=== PATIENT | female | born 1965 | race Caucasian/White ===

== ENCOUNTER 2021-03-21 06:53 | Day surgery (SDC) | payer BC, OTHER ==
[2021-03-21] MEDS ORDERED: Propofol 200 MG/20 ML SDV IV ONE (06:54)
[2021-03-21] MEDS ORDERED: Midazolam 1 MG/ML 2 ML SDV IV ONE (06:54)
[2021-03-21] MEDS ORDERED: Sodium Chloride 0.9% 10 ML Syringe FLUSH PRN (07:15)
[2021-03-21] MEDS ORDERED: Lactated Ringers 1,000 ML IV SCH (07:15)
--- NOTE | 2021-03-21 08:53 | PCM.PN ---
- General Info Date of Service: 03/21/21 - Review of Systems General: Reports: No Symptoms Pulmonary: Reports: No Symptoms, Other (Has been dx with sleep apnea). Denies: Shortness of Breath Cardiovascular: Reports: No Symptoms Gastrointestinal: Reports: Other (Bowels working well; recently started on weight loss medication) - Patient Data Vitals - Most Recent: Last Vital Signs Temp 98.4 F 03/21/21 07:15 Pulse 83 03/21/21 07:15 Resp 16 03/21/21 07:15 BP 125/72 03/21/21 07:15 Pulse Ox 99 03/21/21 07:15 Weight - Most Recent: 222 lb 7.143 oz Med Orders - Current: Current Medications Lactated Ringer's (Ringers, Lactated) 1,000 mls @ 125 mls/hr IV ASDIRECTED KYRA Last Admin: 03/21/21 07:34 Dose: 125 mls/hr Documented by: Sodium Chloride (Sodium Chloride 0.9% 10 Ml Syringe) 10 ml FLUSH ASDIRECTED PRN PRN Reason: Keep Vein Open - Exam General: Alert, Oriented Lungs: Clear to Auscultation, Normal Respiratory Effort Cardiovascular: Regular Rate, Regular Rhythm GI/Abdominal Exam: Soft, Non-Tender Extremities: Normal Inspection Sepsis Event Note - Focused Exam Vital Signs: Vital Signs Temp Pulse Resp BP Pulse Ox 03/21/21 07:15 98.4 F 83 16 125/72 99 - Problem List Review Problem List Initiated/Reviewed/Updated: Yes - My Orders Last 24 Hours: My Active Orders 03/21/21 07:15 Patient Status [ADT] Routine Patient to Empty Bladder [RC] ASDIRECTED Verify Patient Consent Obtain [RC] ASDIRECTED HCG QUALITATIVE,URINE [URCHEM] Routine Lactated Ringers [Ringers, Lactated] 1,000 ml IV ASDIRECTED Sodium Chloride 0.9% [Saline Flush] 10 ml FLUSH ASDIRECTED PRN Peripheral IV Insertion Adult [OM.PC] Routine - Assessment Assessment:: Colon cancer screening sleep apnea - Plan Plan:: Colonoscopy
--- NOTE | 2021-03-21 09:46 | PCM.OPNOTE ---
- General Post-Op/Procedure Note Date of Surgery/Procedure: 03/21/21 Operative Procedure(s): Colonoscopy with Polypectomy Findings: Multiple small polyps Mild Sigmoid Diverticulosis Moderate internal hemorrhoids Pre Op Diagnosis: Colon Cancer screening Post-Op Diagnosis: Colon polyps. Sigmoid Diverticulosis. Internal Hemorrhoids Anesthesia Technique: MAC Primary Surgeon: Thomas Cantor Pathology: Colon Polyps EBL in mLs: 2 Complications: None Condition: Good
--- NOTE | 2021-03-21 12:18 | OR ---
DATE OF OPERATION: 03/21/2021 SURGEON: Thomas Cantor MD PREOPERATIVE DIAGNOSIS: Colon cancer screening. POSTOPERATIVE DIAGNOSES: 1. Colon polyps. 2. Sigmoid diverticulosis. 3. Internal hemorrhoids. OPERATION PERFORMED: Colonoscopy with polypectomy. INDICATIONS FOR SURGERY: This 55-year-old female presents today for her initial screening colonoscopy. She denies any recent difficulty with bowel movements. FINDINGS: The patient has polyps in three locations. All of the polyps were small sessile polyps ranging in size from 3 to 5 mm. There is a cluster of three of these polyps in the rectum approximately 8 cm from the anal verge, a cluster of three small polyps in the sigmoid colon 15 cm from the anal verge, and a single polyp in the cecum. The patient also has a small amount of diverticulosis in the sigmoid region that does not appear to be acutely inflamed or otherwise complicated, and she also has moderate-sized internal hemorrhoids. The remainder of the colon appears normal. PROCEDURE IN DETAIL: The patient was taken to the procedure room. She was given intravenous sedation and with her in the left lateral decubitus position, digital rectal exam was performed showing no rectal masses. The Olympus colonoscope was inserted into the rectum. Retroflexed examination of the rectal canal was performed. In the rectum and lower sigmoid colon, the above-described polyps were identified. These were all removed with the cold biopsy forceps and retrieved. The scope was then carefully advanced under direct visualization through the entire length of the colon until the cecum was reached. Cecal acquisition was confirmed by noting normal internal cecal anatomy including appendiceal orifice and the ileocecal valve. In the cecum, the above-described cecal polyp was identified. This was removed completely with a cold biopsy forceps and retrieved. After examining the cecum, the scope was slowly withdrawn sequentially re-examining the colonic segments until the entire colon and rectum had been fully examined. The scope was removed and the patient was taken from the procedure room in satisfactory condition. ESTIMATED BLOOD LOSS: 2 mL. COMPLICATIONS: None. PROGNOSIS: Good. /[id number] EMELY/PETE
== END 2021-03-21 10:45 | disposition home or self-care (01) ==
LOC: FB.SDS 06:53
PROVIDERS: ATTEND Surgery
DX: Z12.11 Encounter for screening for malignant neoplasm of colon (principal); D12.0 Benign neoplasm of cecum; K62.1 Rectal polyp; K57.30 Diverticulosis of large intestine without perforation or abscess without bleeding; K64.8 Other hemorrhoids; E66.09 Other obesity due to excess calories; E78.2 Mixed hyperlipidemia; L98.9 Disorder of the skin and subcutaneous tissue, unspecified; K21.9 Gastro-esophageal reflux disease without esophagitis; Z79.899 Other long term (current) drug therapy; Z68.37 Body mass index [BMI] 37.0-37.9, adult; Z88.8 Allergy status to other drugs, medicaments and biological substances; Z98.890 Other specified postprocedural states
CPT/HCPCS: 00812; 45380; 88305; J2250; J2704; J7120